=== PATIENT | female | born 1990 | race African-American/Black ===

== ENCOUNTER 2020-10-20 23:17 | Emergency (ER) | payer SELFPAY ==
[~2020-10-20] VITALS: Ht 172.7 cm; Wt 70.3 kg
[2020-10-20] MEDS ORDERED: MIDAZOLAM HCL 2 MG/2ML VIAL ONE (23:39)
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
[2020-10-21] MEDS ORDERED: MIDAZOLAM HCL 5 MG/5ML VIAL IM ONE
[2020-10-21] MEDS ORDERED: MIDAZOLAM HCL 2 MG/2ML VIAL IM ONE
--- NOTE | 2020-10-21 00:01 | NUR ---
PT RESTING COMFORTABLY. ON 2L NC, SAT 100%. WILL CONTINUE TO MONITOR.
--- NOTE | 2020-10-21 01:40 | NUR ---
PT NOTED ASLEEP, PROVIDED WITH EXTRA BLANKETS. ON MONITOR AND PULSE OX. VSS.
--- NOTE | 2020-10-21 03:11 | NUR ---
PT REMAINS ASLEEP, VSS.
--- NOTE | 2020-10-21 04:42 | NUR ---
PT AWAKE, IN BED RESTING, VSS.
[2020-10-21 06:31] VITALS: BP 113/68
--- NOTE | 2020-10-21 06:31 | NUR ---
Patient discharged to home in stable condition. Written and verbal after care instructions given. Patient verbalizes understanding of instruction. Refused to sign paperwork.
== END 2020-10-21 06:32 | disposition home or self-care (01) ==
LOC: ER 23:19
DX: F10.129 Alcohol abuse with intoxication, unspecified (principal); Y90.9 Presence of alcohol in blood, level not specified
CPT/HCPCS: 96372; 99283; J2250